=== PATIENT | male | born 1995 | race Caucasian/White ===

== ENCOUNTER 2022-09-01 20:13 | Emergency (ER) | payer BC ==
[~2022-09-01] VITALS: Ht 210.8 cm; Wt 136.1 kg
--- NOTE | 2022-09-01 20:30 | NUR ---
Dr. Ch at bedside for MSE.
[2022-09-01 20:52] LABS: HEMATOCRIT 46.1 % (36.7-47.1); MEAN CORPUSCULAR HEMOGLOBIN 28.4 uug (23.8-33.4); MEAN CORPUSCULAR VOLUME 84.8 fL (73.0-96.2); PLATELET COUNT (AUTO) 237 K/uL (152-348)
--- NOTE | 2022-09-01 21:00 | NUR ---
Xray at bedside.
[2022-09-01 21:09] LABS: ALANINE AMINOTRANSFERASE 32 U/L (16-63); ALKALINE PHOSPHATASE 70 U/L (50-136); ASPARTATE AMINOTRANSFERASE 19 U/L (15-37); BILIRUBIN,DIRECT < 0.1 mg/dL (0.0-0.2); BILIRUBIN,TOTAL 0.3 mg/dL (0.2-1.0); CARBON DIOXIDE 26 mmol/L (21-32); CHLORIDE 103 mmol/L (98-107); CREATININE 1.3 mg/dL (0.6-1.3); GLUCOSE 108 mg/dL (74-106); POTASSIUM 3.7 mmol/L (3.5-5.1); UREA NITROGEN, BLOOD 20 mg/dL (7-18)
[2022-09-01] MEDS ORDERED: OXYC-128 PO (22:13)
[2022-09-01 22:19] VITALS: BP 123/74
--- NOTE | 2022-09-01 22:19 | NUR ---
Patient discharged to home in stable condition. Written and verbal after care instructions given. Patient verbalizes understanding of instructions. Stressed follow up or return to ER for worsening s/s. Pt out of ER with steady gait, no acute signs of distress, VSS, IV site discontinued, all belongings taken, provided with copies of lab and xray results.
== END 2022-09-01 22:20 | disposition home or self-care (01) ==
LOC: ER 20:19
DX: E08.9 Diabetes mellitus due to underlying condition without complications (principal); R07.89 Other chest pain; E66.9 Obesity, unspecified; Z68.30 Body mass index [BMI] 30.0-30.9, adult; R94.31 Abnormal electrocardiogram [ECG] [EKG]; E55.9 Vitamin D deficiency, unspecified; G89.29 Other chronic pain; M54.50 Low back pain, unspecified
CPT/HCPCS: 36415; 71045; 83735; 84484; 85025; 93005; A4663